=== PATIENT | female | born 1985 | race American Indian/Alaskan Native ===

== ENCOUNTER 2019-08-08 22:28 | Emergency (ER) | payer SELFPAY ==
[2019-08-08 23:14] LABS: Basophils % (Auto) 0.4 % (0.0-1.8); Eosinophils # (Auto) 0.2 K/mm3 (0.0-0.4); Hematocrit 36.6 % (30.3-42.9); Hemoglobin 12.2 gm/dl (10.1-14.3); Lymphocytes # (Auto) 2.5 K/mm3 (1.2-5.4); Lymphocytes % (Auto) 27.4 % (13.4-35.0); Mean Corpuscular HGB Conc 33 % (30-34); Mean Corpuscular Volume 84 fl (79-97); Monocytes # (Auto) 0.6 K/mm3 (0.0-0.8); Monocytes % (Auto) 6.8 % (0.0-7.3); Platelet Count 277 K/mm3 (140-440); Red Blood Count 4.35 M/mm3 (3.65-5.03); Red Cell Distribution Width 14.1 % (13.2-15.2)
--- NOTE | 2019-08-08 23:29 | Emergency Department Report ---
ED Female HPI - General Chief complaint: Abdominal Pain Stated complaint: 12 WEEKS LIQUID DISCHARGE Source: patient Mode of arrival: Ambulatory Limitations: No Limitations - History of Present Illness Initial comments: Patient is a A0 34-year-old -[place] female with no past medical history was approximately 6 to 7 weeks gestation and who presents to the ED with complaint of acute onset persistent suprapubic pain with vaginal bleeding for the last 12 hours. Patient states that the bleeding was like a gush and started when she was driving. Patient states that the pain and the bleeding have been persistent and describes the bleeding as clear pinkish color with no blood clots. Patient denies fever, chills, traumatic injury or heavy lifting, diarrhea, nausea and vomiting, cough, low back pain, change in vision, syncope, sore throat, chest pain or shortness of breath, vaginal discharge, dysuria, urinary frequency and urgency MD Complaint: vaginal bleeding, pelvic pain -: Sudden, hour(s) (2) Location: suprapubic, other (vaginal) Radiation: suprapubic Severity: severe Severity scale (0 -10): 7 Quality: cramping, sharp Consistency: constant Improves with: none Worsens with: none Are you Now?: Yes Associated Symptoms: vaginal bleeding, abdominal pain. denies: nausea/vomiting, fever/chills, headaches, loss of appetite, dysuria, hematuria, rash, seizure, shortness of breath, syncope - Related Data Sexually active: Yes : 4 Para: 3 A: 0 Previous Rx's Medication Instructions Recorded Last Taken Type Acetaminophen [Tylenol] 500 mg PO Q6HR #30 tablet 08/09/19 Unknown Rx Promethazine [Phenergan] 25 mg PO Q6HR PRN #24 tab 08/09/19 Unknown Rx cephALEXin [Keflex] 500 mg PO Q8HR #30 cap 08/09/19 Unknown Rx Allergies Allergy/AdvReac Type Severity Reaction Status Date / Time No Known Allergies Allergy Verified 08/08/19 22:42 ED Review of Systems ROS: Stated complaint: 12 WEEKS LIQUID DISCHARGE Other details as noted in HPI Constitutional: denies: chills, fever Eyes: denies: eye pain, eye discharge, vision change ENT: denies: ear pain, throat pain Respiratory: denies: cough, shortness of breath, wheezing Cardiovascular: denies: chest pain, palpitations Endocrine: no symptoms reported Gastrointestinal: abdominal pain (Suprapubic pain). denies: nausea, vomiting, diarrhea Genitourinary: abnormal menses (Heavy vaginal bleeding). denies: urgency, dysuria, discharge Musculoskeletal: denies: back pain, joint swelling, arthralgia Skin: denies: rash, lesions Neurological: denies: headache, weakness, paresthesias Psychiatric: denies: anxiety, depression Hematological/Lymphatic: denies: easy bleeding, easy bruising ED Past Medical Hx - Past Medical History Previous Medical History?: No - Surgical History Past Surgical History?: No - Social History Smoking Status: Current Every Day Smoker Substance Use Type: None - Medications Home Medications: Home Medications Medication Instructions Recorded Confirmed Last Taken Type Acetaminophen [Tylenol] 500 mg PO Q6HR #30 tablet 08/09/19 Unknown Rx Promethazine [Phenergan] 25 mg PO Q6HR PRN #24 tab 08/09/19 Unknown Rx cephALEXin [Keflex] 500 mg PO Q8HR #30 cap 08/09/19 Unknown Rx ED Physical Exam - General Limitations: No Limitations General appearance: alert, in no apparent distress - Head Head exam: Present: atraumatic, normocephalic, normal inspection - Eye Eye exam: Present: normal appearance, PERRL, EOMI Pupils: Present: normal accommodation - ENT ENT exam: Present: normal exam, normal orophraynx, mucous membranes moist, TM's normal bilaterally, normal external ear exam - Neck Neck exam: Present: normal inspection, full ROM - Respiratory Respiratory exam: Present: normal lung sounds bilaterally. Absent: respiratory distress, wheezes, rales, rhonchi, chest wall tenderness, accessory muscle use, decreased breath sounds, prolonged expiratory - Cardiovascular Cardiovascular Exam: Present: regular rate, normal rhythm, normal heart sounds. Absent: systolic murmur, diastolic murmur, rubs, gallop - GI/Abdominal GI/Abdominal exam: Present: soft, tenderness (Palpable suprapubic tenderness, no guarding or rebound), normal bowel sounds. Absent: guarding, rebound, hyperactive bowel sounds, hypoactive bowel sounds - Bi-manual exam: Present: other (Pelvic exam deferred) - Extremities Exam Extremities exam: Present: normal inspection, full ROM, normal capillary refill - Back Exam Back exam: Present: normal inspection, full ROM. Absent: tenderness, CVA tenderness (R), muscle spasm, paraspinal tenderness - Neurological Exam Neurological exam: Present: alert, oriented X3, CN II-XII intact, normal gait, reflexes normal - Psychiatric Psychiatric exam: Present: normal affect, normal mood - Skin Skin exam: Present: warm, dry, intact, normal color. Absent: rash ED Course Vital Signs 08/08/19 08/09/19 22:36 04:08 Temperature 98.2 F 98.1 F Pulse Rate 79 82 Respiratory 18 16 Rate Blood Pressure 107/74 Blood Pressure 118/76 [Right] O2 Sat by Pulse 100 100 Oximetry ED Medical Decision Making - Lab Data Result diagrams: 08/08/19 22:56 08/08/19 23:10 - Radiology Data Radiology results: report reviewed, image reviewed Findings [address] [address] Ultrasound Report Signed Patient: ADAMARIS KIRKLAND MR#: [id number] : 1985 Acct:[id number] Age/Sex: 34 / F ADM Date: 08/08/19 Loc: ED Attending Dr: Ordering Physician: GRAEME REID Date of Service: 08/08/19 Procedure(s): US OB transvaginal Accession Number(s): [id number] cc: GRAEME REID OB Ultrasound HISTORY: Abdominal pain, vaginal bleeding. TECHNIQUE: Grayscale and color imaging performed. COMPARISON: None FINDINGS: Uterus measures 10.6 x 6.9 x 6.7 cm with endometrial echocomplex measuring 2.1 cm. There is an intrauterine cystic structure but there is no pole identified, although there is a yolk sac. No appreciable pelvic free fluid. Mean sac diameter is 1.2 cm which would correspond with an EGA of 6 weeks and 0 days. There are 2 complex cysts in the right ovary the largest measuring 1.9 cm in maximal dimension. No internal blood flow identified. IMPRESSION: 1. Intrauterine cystic structure with no pole identified but there is a yolk sac. Correlate with beta hCG level and consider follow-up pelvic ultrasound as indicated. 2. 2 complex cysts in the right ovary, likely functional. Signer Name: Tree Knapp MD Signed: 08/09/2019 1:06 AM Workstation Name: [id number] Transcribed By: JW Dictated By: Tree Knapp MD Electronically Authenticated By: Tree Knapp MD Signed Date/Time: 08/09/19105 DD/ 3 TD/TT: - Medical Decision Making This is a A0 34-year-old -[place] female with no past medical history was approximately 6 to 7 weeks gestation and who presents to the ED with complaint of acute onset persistent suprapubic pain with vaginal bleeding for the last 12 hours. Patient states that the bleeding was like a gush and started when she was driving. Patient states that the pain and the bleeding have been persistent and describes the bleeding as clear pinkish color with no blood clots. In the ED, patient is alert and oriented x3 and is not in distress with normal vital signs. Lab test results were reviewed and showed mild hypokalemia of 3.4 mmol/L, hCG quant of 2348 and significant UTI in urinalysis with positive nitrite and WBC >33 with significant 4+ bacteriuria. The rest of the lab test results are unremarkable and nonactionable. Patient was treated for pain in the ED and also received Rocephin 1 g intramuscular injection for UTI. The transvaginal ultrasound showed intrauterine cystic structure with no pole identified but there is a yolk sac. Correlate with beta hCG level and consider follow-up pelvic ultrasound as indicated. It also shows complex cysts in the right ovary, likely functional. On reevaluation, patient's pain is well controlled medications. Patient was discharged home on antibiotics and advised to maintain complete pelvic rest with no physical or strenuous or sexual activities. Patient was advised to follow-up with her [employer] physician or return to the ED within 48 hours for repeat hCG quant to ascertain the viability of the . Patient was otherwise advised return to the ED immediately if symptoms get worse. - Differential Diagnosis Ectopic ; Threatened miscarriage; Subchorionic bleed; UTI; Cysts Critical care attestation.: If time is entered above; I have spent that time in minutes in the direct care of this critically ill patient, excluding procedure time. ED Disposition Clinical Impression: Threatened miscarriage, Vaginal bleeding in , Acute urinary tract infection Abdominal pain during Qualifiers: Trimester: first trimester Qualified Code(s): O26.891 - Other specified pregnan cy related conditions, first trimester Disposition: DC-01 TO HOME OR SELFCARE Is pt being admited?: No Does the pt Need Aspirin: No Condition: Stable Instructions: Threatened Miscarriage (ED), Urinary Tract Infection in Women (ED), Abdominal Pain (ED), Abdominal Pain in (ED) Additional Instructions: Take medications with food, drink plenty of fluids and follow up with the [facility] in 24-48 hours for reevaluation. Maintain a complete pelvic rest with no physical or strenuous activity or sexual activities. Return to the ED immediate ly if symptoms get worse. Otherwise return to the ED in 48 hours for hCG quant repeat to ascertain the viability of the . Prescriptions: Acetaminophen [Tylenol] 500 mg PO Q6HR #30 tablet cephALEXin [Keflex] 500 mg PO Q8HR #30 cap Promethazine [Phenergan] 25 mg PO Q6HR PRN #24 tab PRN Reason: Nausea Referrals: ALLIE RICHEY MD [Staff Physician] - 3-5 Days Time of Disposition: 03:54 Print Language: MALTESE
[2019-08-08] MEDS ORDERED: ACETAMINOPHEN 500 MG TAB PO ONE (23:36)
[2019-08-08 23:58] LABS: Alanine Aminotransferase 13 units/L (7-56); Albumin 4.3 g/dL (3.9-5); BUN/Creatinine Ratio 8; Blood Urea Nitrogen 4 mg/dL (7-17); Calcium 9.1 mg/dL (8.4-10.2); Hemolysis Index 7
--- NOTE | 2019-08-09 01:11 | Ultrasound Report ---
OB Ultrasound HISTORY: Abdominal pain, vaginal bleeding. TECHNIQUE: Grayscale and color imaging performed. COMPARISON: None FINDINGS: Uterus measures 10.6 x 6.9 x 6.7 cm with endometrial echocomplex measuring 2.1 cm. There is an intrauterine cystic structure but there is no pole identified, although there is a yolk sac . No appreciable pelvic free fluid. Mean sac diameter is 1.2 cm which would correspond with an EGA of 6 weeks and 0 days. There are 2 complex cysts in the right ovary the largest measuring 1.9 cm in maximal dimension. No in ternal blood flow identified. IMPRESSION: 1. Intrauterine cystic structure with no pole identified but there is a yolk sac. Correlate wit h beta hCG level and consider follow-up pelvic ultrasound as indicated. 2. 2 complex cysts in the right ovary, likely functional. Signer Name: Tree Knapp MD Signed: 08/09/2019 1:06 AM Workstation Name: [id number]
[2019-08-09 03:12] LABS: Bacteria,Urine 4+ /HPF (Negative); Bilirubin,Urine NEG (Negative); Blood,Urine LG (Negative); Color,Urine Yellow (Yellow); Mucus,Urine FEW /HPF
[2019-08-09 03:15] LABS: RBC,Urine > 182.0 /HPF (0.0-6.0)
[2019-08-09] MEDS ORDERED: LIDOCAINE-MPF (1%) 10 MG/1 ML VIAL 5 ML INFILTRATI ONE (03:17)
[2019-08-09] MEDS ORDERED: ACETAMINOPHEN 500 MG TAB PO ONE (03:24)
[2019-08-09 13:43] VITALS: BP 118/76
== END 2019-08-09 04:09 | disposition home or self-care (01) ==
LOC: ED 22:28
DX: O20.0 Threatened abortion (principal); O23.41 Unspecified infection of urinary tract in pregnancy, first trimester; Z3A.01 Less than 8 weeks gestation of pregnancy; O99.331 Smoking (tobacco) complicating pregnancy, first trimester; Z79.899 Other long term (current) drug therapy
CPT/HCPCS: 36415; 76801; 76817; 80053; 81001; 83690; 84702; 85025; 86900; 86901; 87086; 96372; 99284; J0696